=== PATIENT | female | born 1970 | race Caucasian/White ===

== ENCOUNTER 2022-03-24 01:39 | Emergency (ER) | payer SELFPAY ==
[~2022-03-24] VITALS: Ht 167.6 cm; Wt 59.0 kg
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
--- NOTE | 2022-03-24 02:18 | NUR ---
EKG DONE AT BEDSIDE
[2022-03-24 02:20] LABS: BASOPHILS # (AUTO) 0.1 K/uL (0.0-0.2); BASOPHILS % (AUTO) 0.8 % (0.0-2.0); EOSINOPHILS % (AUTO) 6.6 % (0.0-6.0); HEMATOCRIT 38 % (33-45); HEMOGLOBIN 12.5 g/dL (11.5-14.8); LYMPHOCYTES # (AUTO) 2.5 K/uL (0.8-4.8); LYMPHOCYTES % (AUTO) 35.3 % (20.0-44.0); MEAN CORPUSCULAR HGB CONC 33 g/dl (31.0-36.0); MEAN CORPUSCULAR VOLUME 86 fL (82-100); MONOCYTES # (AUTO) 0.4 K/uL (0.1-1.30); NEUTROPHILS # (AUTO) 3.8 K/uL (1.8-8.9); NEUTROPHILS % (AUTO) 52.3 % (43.0-81.0); PLATELET COUNT (AUTO) 253 K/uL (150-450); RED BLOOD CELL COUNT(AUTO) 4.34 MIL/uL (4.0-5.2); WHITE BLOOD COUNT (AUTO) 7.2 K/uL (4.3-11.0)
--- NOTE | 2022-03-24 02:20 | NUR ---
BLOOD DRAWN BY LOCOMOTIVE CRANE OPERATOR HELPER AT BEDSIDE
--- NOTE | 2022-03-24 02:25 | NUR ---
PATIENT ENCOURAGED TO GIVE URINE. PATIENT SAID SHE WILL DO IT ONCE SHE IS READY
[2022-03-24 02:45] LABS: CALCIUM, SERUM 9.1 mg/dL (8.5-10.1); CARBON DIOXIDE 27 mmol/L (21-32); CHLORIDE 103 mmol/L (98-107); CREATININE 1.1 mg/dL (0.6-1.3); GLUCOSE 137 mg/dL (74-106); POTASSIUM 3.1 mmol/L (3.5-5.1); SODIUM SERUM 138 mmol/L (136-145); UREA NITROGEN, BLOOD 12 mg/dL (7-18)
--- NOTE | 2022-03-24 02:53 | NUR ---
FF UP URINE, PATIENT CANNOT PASS URINE AT THE MOMENT. REFUSED IN AND OUT URINE COLLECTION. DR GRIMALDO MADE AWARE.
[2022-03-24] MEDS ORDERED: POTASSIUM CHLORIDE 20 MEQ TAB.PRT.SR PO ONE ×2 (03:00→03:31)
[2022-03-24 03:13] LABS: ALANINE AMINOTRANSFERASE 30 U/L (12-78); ALBUMIN 3.5 g/dL (3.4-5.0); ALCOHOL, BLOOD < 3 mg/dL (0-0); ALKALINE PHOSPHATASE 104 U/L (46-116); ASPARTATE AMINOTRANSFERASE 19 U/L (15-37); BILIRUBIN,DIRECT 0.1 mg/dL (0.0-0.2); BILIRUBIN,TOTAL 0.4 mg/dL (0.2-1.0); TOTAL PROTEIN, SERUM 7.1 g/dL (6.4-8.2)
[2022-03-24] MEDS ORDERED: NALO4SPR BNOSTRILS (03:53)
--- NOTE | 2022-03-24 04:05 | NUR ---
Patient discharged to home in stable condition. Written and verbal after care instructions given. Patient verbalizes understanding of instruction.
--- NOTE | 2022-03-24 04:05 | NUR ---
IV CANNULA REMOVED
[2022-03-24 04:06] VITALS: BP 119/70
== END 2022-03-24 04:06 | disposition home or self-care (01) ==
LOC: ER 01:41
DX: T40.2X1A Poisoning by other opioids, accidental (unintentional), initial encounter (principal); E87.6 Hypokalemia; Y92.89 Other specified places as the place of occurrence of the external cause
CPT/HCPCS: 36415; 80048-TC; 80076-TC; 84702-TC; 85025-TC; G0480